=== PATIENT | female | born 1985 | race Caucasian/White ===

== ENCOUNTER 2023-10-05 18:53 | Emergency (ER) | payer BC ==
[~2023-10-05] VITALS: Ht 170.2 cm; Wt 97.1 kg
[2023-10-05 19:00] VITALS: BP 122/83; PULSE 83; RESP 16; TEMP 97.1; O2SAT 98
[2023-10-05 20:53] LABS: BASOPHILS % (AUTO) 0.4 % (0.0-2.0); EOSINOPHILS # (AUTO) 0.3 K/uL (0-0.4); HEMATOCRIT 34.8 % (36-48); HEMOGLOBIN 11.5 g/dL (12.0-16.0); LYMPHOCYTES # (AUTO) 1.7 K/uL (2.5-16.5); LYMPHOCYTES % (AUTO) 26.7 % (20.5-51.1); MEAN CORPUSCULAR HEMOGLOBIN 29 pg (27-31); MEAN CORPUSCULAR HGB CONC 33 g/dL (33-37); MEAN CORPUSCULAR VOLUME 86.1 fL (80-94); MONOCYTES # (AUTO) 0.5 K/uL (0.8-1.0); NEUTROPHILS % (AUTO) 60.9 % (42.2-75.2); PLATELET COUNT (AUTO) 348 K/uL (140-450); RED BLOOD CELL COUNT(AUTO) 4.05 MIL/uL (4.20-5.40); RED CELL DISTRIBUTION WIDTH 14.4 % (11.6-13.7); WHITE BLOOD COUNT (AUTO) 6.5 K/uL (4.8-10.8)
[2023-10-05 21:08] LABS: CALCIUM 9.2 mg/dL (8.5-10.1); CARBON DIOXIDE 26.9 mmol/L (21-32); CREATININE 0.8 mg/dL (0.6-1.3); POTASSIUM 3.9 mmol/L (3.5-5.1)
[2023-10-05 21:27] LABS: ALBUMIN 3.5 g/dL (3.4-5.0); BILIRUBIN,DIRECT 0.1 mg/dL (0.0-0.3); THYROID STIMULATING HORMONE 5.77 uIU/mL (0.34-3.74); TOTAL BILIRUBIN 0.3 mg/dL (0.0-1.0); TOTAL PROTEIN, SERUM 7.7 g/dL (6.4-8.2)
[2023-10-05] MEDS ORDERED: DOCU-299 PO (21:43)
== END 2023-10-05 21:50 | disposition home or self-care (01) ==
LOC: MED 18:53
DX: S30.851A Superficial foreign body of abdominal wall, initial encounter (principal); R60.9 Edema, unspecified; E03.9 Hypothyroidism, unspecified; F15.90 Other stimulant use, unspecified, uncomplicated; Z72.89 Other problems related to lifestyle; Z88.2 Allergy status to sulfonamides; Z88.8 Allergy status to other drugs, medicaments and biological substances; Z79.899 Other long term (current) drug therapy; X58.XXXA Exposure to other specified factors, initial encounter; Y93.89 Activity, other specified; Y92.89 Other specified places as the place of occurrence of the external cause; Y99.8 Other external cause status
CPT/HCPCS: 36415; 71045; 74018; 80048; 80076; 81002; 81025; 83690; 83880; 84443; 85025; 93005; 99285

== ENCOUNTER 2023-10-12 10:28 | Emergency (ER) | payer BC ==
[~2023-10-12] VITALS: Ht 170.2 cm; Wt 95.9 kg
[~2023-10-12 10:28] MED LIST: DOCU-299 PO
[2023-10-12 10:50] VITALS: BP 115/83; PULSE 93; RESP 17; TEMP 97.8; O2SAT 95
[2023-10-12] MEDS ORDERED: NA P133N1 RC (11:22)
[2023-10-12] MEDS ORDERED: MIRABULK PO (11:22)
[2023-10-12 11:48] VITALS: BP 115/83; PULSE 93; RESP 17; TEMP 97.8; O2SAT 95
== END 2023-10-12 11:48 | disposition home or self-care (01) ==
LOC: MED 10:28
DX: K59.09 Other constipation (principal); R03.0 Elevated blood-pressure reading, without diagnosis of hypertension; Z79.899 Other long term (current) drug therapy; Z88.2 Allergy status to sulfonamides; Z88.1 Allergy status to other antibiotic agents
CPT/HCPCS: 99282